=== PATIENT | female | born 1990 | race African-American/Black ===

== ENCOUNTER 2025-01-23 14:39 | Inpatient (IN) | payer BC ==
[~2025-01-23] VITALS: Ht 152.4 cm; Wt 96.2 kg
[2025-01-23 14:50] VITALS: O2SAT 98
[2025-01-23] MEDS: MORPHINE SULFATE 2 MG/ML INJ (NOT FOR IM USE) IV ONE (15:55)
[2025-01-23] MEDS: MIDAZOLAM HCL 2 MG/2 ML VIAL ONE (17:58)
[2025-01-23] MEDS: FENTANYL CITRATE/PF 50MCG/ML 2ML VIAL IV NR (17:59)
[2025-01-23] MEDS: PROPOFOL 200MG/20ML VIAL IV ONE (17:59)
[2025-01-23 20:00] VITALS: BP 125/78; PULSE 105; RESP 18; TEMP 36.7; O2SAT 100
[2025-01-23 20:05] LABS: HEMATOCRIT 39.1 % (36.0-48.0); HEMOGLOBIN 13.5 g/dL (12.0-16.0); MEAN CORPUSCULAR HEMOGLOBIN 33.2 pg (28.0-32.0); MEAN CORPUSCULAR HGB CONC 34.5 g/dL (31.0-37.0); MEAN CORPUSCULAR VOLUME 96.1 fL (81.0-99.0); PLATELET 286 x1000/uL (130-400); RED BLOOD CELL COUNT 4.07 mill/uL (4.2-5.4); RED CELL DISTRIBUTION WIDTH 12.4 % (11.6-14.6)
[2025-01-23 20:14] LABS: CHLORIDE 106 mEq/L (98-107); POTASSIUM 4.3 mEq/L (3.5-5.1); SODIUM 139 mEq/L (136-145)
[2025-01-23 20:15] LABS: CALCIUM 9.4 mg/dL (8.7-10.4); CARBON DIOXIDE 23 mEq/L (21-32)
[2025-01-23 20:17] LABS: HCG SCREEN NEGATIVE; PARTIAL THROMBOPLASTIN TIME 24.9 sec (23.4-31.0); PROTHROMBIN TIME 10.3 sec (9.6-11.0)
[2025-01-23 20:20] LABS: CREATININE 0.9 mg/dL (0.6-1.0); GLUCOSE 106 mg/dL (70-105); UREA NITROGEN BLOOD 17 mg/dL (9-23)
[2025-01-23] MEDS: MORPHINE SULFATE 2 MG/ML INJ (NOT FOR IM USE) IV PRN (22:57)
[2025-01-23 23:00] VITALS: BP 125/78; PULSE 105; RESP 18; TEMP 36.8
[2025-01-24] VITALS: BP 140/71; PULSE 109; RESP 18; TEMP 37.3; O2SAT 100
[2025-01-24] MEDS ORDERED: ONDANSETRON HCL 4MG/2ML INJ IV PRN ×2 (00:15→12:30)
[2025-01-24] MEDS ORDERED: HYDROCODONE/ACETAMINOPHEN 5/325MG TABLET PO PRN (00:15)
[2025-01-24] MEDS ORDERED: ZOLPIDEM TARTRATE 5MG TABLET PO PRN (00:15)
[2025-01-24] MEDS ORDERED: CLONIDINE 0.1MG TABLET PO PRN (00:15)
[2025-01-24] MEDS ORDERED: MORPHINE SULFATE 2 MG/ML INJ (NOT FOR IM USE) IV PRN (00:15)
[2025-01-24] MEDS ORDERED: ACETAMINOPHEN 325MG TABLET PO PRN (00:15)
[2025-01-24] MEDS: SODIUM CHLORIDE 0.9% 1,000 ML IV SCH (03:17)
[2025-01-24] MEDS: MORPHINE SULFATE 4 MG/ML INJ (FOR IV/IM USE) IV PRN (03:19)
[2025-01-24 04:00] VITALS: BP 138/78; PULSE 93; RESP 18; TEMP 36.5; O2SAT 100
[2025-01-24 08:00] VITALS: BP 125/68; PULSE 69; RESP 17; TEMP 36; O2SAT 97
[2025-01-24] MEDS: PANTOPRAZOLE SODIUM 40 MG/VIAL IV SCH (09:07)
[2025-01-24] MEDS ORDERED: VANCOMYCIN HCL 1GM VIAL ONE (09:13)
[2025-01-24] MEDS ORDERED: POLYMYXIN B SULFATE 500000 UNITS/VIAL ONE (09:13)
[2025-01-24] MEDS ORDERED: LIDOCAINE HCL/EPINEPHRINE 1%-EPI 1:100,000 20ML VIAL ONE (09:14)
[2025-01-24] MEDS ORDERED: ACETAMINOPHEN 1000MG/100ML 100 ML IV ONE (09:14)
[2025-01-24] MEDS ORDERED: NALOXONE HCL 0.4MG/ML VIAL IV PRN (11:15)
[2025-01-24 12:45] LABS: CLARITY URINE CLOUDY (CLEAR); COLOR URINE YELLOW (YELLOW); GLUCOSE URINE NEGATIVE (NEGATIVE); KETONES URINE 2+ (NEGATIVE); LEUKOCYTE ESTERASE URINE NEGATIVE (NEGATIVE); NITRITE URINE NEGATIVE (NEGATIVE); OCCULT BLOOD URINE NEGATIVE (NEGATIVE); PH URINE 5.5 (4.5-8.0); PROTEIN URINE TRACE (NEGATIVE); SPECIFIC GRAVITY URINE 1.032 (1.005-1.030); UROBILINOGEN URINE 0.2 E.U./dL (0.2-1.0)
[2025-01-24] MEDS: MORPHINE SULFATE 2 MG/ML INJ (NOT FOR IM USE) IV PRN (12:49)
[2025-01-24 13:53] LABS: *AMPHETAMINES SCREEN URINE NEGATIVE (NEGATIVE)
[2025-01-24 13:54] LABS: *BARBITURATES SCREEN URINE NEGATIVE (NEGATIVE); *BENZODIAZEPINES SCREEN URINE PRESUMPTIVE POSITIVE (NEGATIVE); *COCAINE SCREEN URINE NEGATIVE (NEGATIVE); CANNABINOID URINE SCREEN NEGATIVE (NEGATIVE); ECSTASY MDMA SCREEN URINE NEGATIVE (NEGATIVE); METHADONE URINE SCREEN NEGATIVE (NEGATIVE); OPIATES URINE SCREEN PRESUMPTIVE POSITIVE (NEGATIVE); PHENCYCLIDINE URINE SCREEN NEGATIVE (NEGATIVE); SQUAMOUS EPITHELIAL CELL URINE 1+ /lpf (RARE/1+)
[2025-01-24 13:55] LABS: MUCUS URINE 1+ /lpf (< = 2+)
[2025-01-24] MEDS ORDERED: CEFAZOLIN SODIUM 2000MG/VIAL IJ SCH (14:00)
[2025-01-24 14:01] LABS: BACTERIA URINE 1+; RBC URINE NONE SEEN /hpf (0-2)
[2025-01-24] MEDS: CEFAZOLIN 2GM/100ML 100 ML IV SCH (15:00)
[2025-01-24 16:00] VITALS: BP 119/75; PULSE 84; RESP 17; TEMP 36.6; O2SAT 97
[2025-01-24] MEDS: HYDROCODONE/ACETAMINOPHEN 5/325MG TABLET PO PRN (16:01)
[2025-01-24 20:00] VITALS: BP 107/54; PULSE 96; RESP 18; TEMP 36.5; O2SAT 97
[2025-01-24 21:28] LABS: HEPATITIS B SURFACE ANTIGEN NEGATIVE (Negative)
[2025-01-24 21:49] LABS: HEPATITIS C AB NON REACTIVE (Neg) (Negative)
[2025-01-25] VITALS: BP 119/61; PULSE 92; RESP 19; TEMP 36.6; O2SAT 98
[2025-01-25 04:00] VITALS: BP 132/51; PULSE 80; RESP 17; TEMP 36.5; O2SAT 98
[2025-01-25 08:00] VITALS: BP 138/78; PULSE 93; RESP 18; TEMP 36.4; O2SAT 100
[2025-01-25 09:21] LABS: BASOPHILS % 0.3 % (0.0-2.0); HEMATOCRIT. 35.7 % (36.0-48.0); HEMOGLOBIN. 12.3 g/dL (12.0-16.0); LYMPHOCYTES % 25.5 % (20.0-50.0); MEAN CORPUSCULAR HEMOGLOBIN 33.1 pg (28.0-32.0); MEAN CORPUSCULAR HGB CONC 34.4 g/dL (31.0-37.0); MEAN CORPUSCULAR VOLUME 96.4 fL (81.0-99.0); MEAN PLATELET VOLUME 8.6 fl (7.4-10.4); MONOCYTES % 10.2 % (2.0-8.0); PLATELET 249 x1000/uL (130-400); RED BLOOD CELL COUNT 3.71 mill/uL (4.2-5.4); RED CELL DISTRIBUTION WIDTH 12.7 % (11.6-14.6); WHITE BLOOD COUNT 8.4 x1000/uL (4.5-11.0)
[2025-01-25 12:00] VITALS: BP 133/77; RESP 19; TEMP 36.4; O2SAT 100
[2025-01-25] MEDS ORDERED: HYDR-4009 MT ×2 (12:15→16:35)
[2025-01-25] MEDS ORDERED: DOCU-138 MT (12:15)
[2025-01-25 13:20] LABS: CHLORIDE 106 mEq/L (98-107); POTASSIUM 4.5 mEq/L (3.5-5.1); SODIUM 139 mEq/L (136-145)
[2025-01-25 13:21] LABS: CARBON DIOXIDE 24 mEq/L (21-32)
[2025-01-25 13:22] LABS: CALCIUM 8.2 mg/dL (8.7-10.4)
[2025-01-25 13:26] LABS: CREATININE 0.7 mg/dL (0.6-1.0)
[2025-01-25 13:27] LABS: GLUCOSE 97 mg/dL (70-105); UREA NITROGEN BLOOD 12 mg/dL (9-23)
[2025-01-25 16:00] VITALS: BP 142/84; PULSE 87; RESP 18; TEMP 36.4; O2SAT 99
== END 2025-01-25 17:38 | disposition home health service (06) | DRG 494 ==
LOC: ER 14:39 → 6EST 21:45
PROVIDERS: ADMIT Internal Medicine; ATTEND Internal Medicine
PROC: 0QSJXZZ Reposition Right Fibula, External Approach (ICD-10-PCS; 2025-01-23)
PROC: 0QSG04Z Reposition Right Tibia with Internal Fixation Device, Open Approach (ICD-10-PCS; principal; 2025-01-24)
PROC: 0QSJ04Z Reposition Right Fibula with Internal Fixation Device, Open Approach (ICD-10-PCS; 2025-01-24)
DX: S82.851A Displaced trimalleolar fracture of right lower leg, initial encounter for closed fracture (principal); W01.0XXA Fall on same level from slipping, tripping and stumbling without subsequent striking against object, initial encounter; G89.29 Other chronic pain; S93.04XA Dislocation of right ankle joint, initial encounter; X50.1XXA Overexertion from prolonged static or awkward postures, initial encounter; Y93.01 Activity, walking, marching and hiking; Y92.89 Other specified places as the place of occurrence of the external cause; Y99.8 Other external cause status
CPT/HCPCS: 36415; 73590; 73600; 73610; 73620; 76000; 80048; 80305; 81003; 84703; 85025; 85027; 86705; 86850; 86900; 87340; 93970; 97162; 97166; 97530; 97535; 99152; 99291; A6449; J0690; J2004; J2250; J2270; J2470; J2704; J3370; J3490; J7030; C1713; C1769; J0131